=== PATIENT | female | born 1990 | race Caucasian/White ===

== ENCOUNTER 2018-12-26 06:08 | Day surgery (SDC) | payer BC ==
[~2018-12-26] VITALS: Ht 167.6 cm; Wt 61.2 kg
[2018-12-26] VITALS (12 sets, daily range): BP systolic 98–124; BP diastolic 47–76
[~2018-12-26 06:08] MED LIST: ceFAZolin sod 2 GM in D5W 55 ML IVP ONE
[2018-12-26] MEDS ORDERED: MINOCYCLINE HCL50 MG PO (06:52)
[2018-12-26] MEDS ORDERED: XYREM500 MG/1 M ORAL (06:52)
[2018-12-26] MEDS ORDERED: Propofol 200mg/20ml IV ONE ×2 (07:00→07:11)
[2018-12-26] MEDS ORDERED: LR 1000ml ONE ×2 (07:00→07:30)
[2018-12-26] MEDS ORDERED: Lidocaine 1% 10mg/ml/Epi 0.005mg/ml 30ml vial INJ ONE (07:10)
[2018-12-26] MEDS ORDERED: fentaNYL 100 mcg/2 mL IV ONE (07:10)
[2018-12-26] MEDS ORDERED: Dyna-Hex 2% Top Sol 2oz TOPIC ONE (07:10)
[2018-12-26] MEDS ORDERED: Midazolam 2mg/2ml Inj ONE (07:10)
[2018-12-26] MEDS ORDERED: Bupivacaine 0.25% Inj 30ml INJ ONE (07:10)
[2018-12-26] MEDS ORDERED: Muri-Lube ONE (07:10)
[2018-12-26] MEDS ORDERED: Bacitracin Oint 15gm Tube TOPIC ONE (07:10)
[2018-12-26] MEDS ORDERED: Lidocaine 1% MPF 10mg/ml 5ml ONE (07:11)
[2018-12-26] MEDS ORDERED: Sodium Chloride 10ml vial INJ ONE ×2 (07:17→08:30)
[2018-12-26] MEDS ORDERED: Succinylcholine 20mg/ml 10ml vial ONE (07:26)
[2018-12-26] MEDS ORDERED: TransDerm Scop 1mg/72HR Patch TDERMAL ONE ×2 (07:26→08:30)
[2018-12-26] MEDS ORDERED: Zemuron 50mg/5ml Inj IV ONE (07:26)
[2018-12-26] MEDS ORDERED: Sterile Water Irrig 1000ml IRRIG ONE (07:30)
--- NOTE | 2018-12-26 07:41 | Anethesia Preoperative Eval ---
Anesthesia Pre-op PMH/ROS General Date of Evaluation: Dec 26, 2018 Time of Evaluation: 07:39 Anesthesiologist: Winston ASA Score: ASA 2 Mallampati Score Class I : Soft palate, uvula, fauces, pillars visible Class II: Soft palate, uvula, fauces visible Class III: Soft palate, base of uvula visible Class IV: Only hard plate visible Mallampati Classification: Class II Surgeon: Deniz Diagnosis: Gender dysphoria Surgical Procedure: Bilateral mastectomy Anesthesia History: none Family History: no anesthesia problems Allergies: Coded Allergies: PENICILLINS (Verified Allergy, Mild, 12/26/18) SKIN RASH Medications: see eMAR Patient NPO?: Yes Past Medical History Cardiovascular: Denies: HTN, CAD, GA, valve dz, arrhythmia, other Pulmonary: Denies: asthma, COPD, MITCH, other Gastrointestinal/Genitourinary: Reports: GERD - mild Neurologic/Psychiatric: Reports: depression/anxiety; Denies: dementia, CVA, TIA, other Endocrine: Denies: DM, hypothyroidism, steroids, other HEENT: Denies: cataract (L), cataract (R), glaucoma, COWLITZ (L), COWLITZ (R), other Hematology/Immune: Denies: anemia, DVT, bleeding disorder, other Musculoskeletal/Integumentary: Denies: OA, RA, DJD, DDD, edema, other PMH Narrative: as above Anesthesia Pre-op Phys. Exam Physician Exam Last Vital Signs Date Time Temp Pulse Resp B/P (MAP) Pulse Ox O2 Delivery O2 Flow Rate FiO2 12/26/18 06:54 98.1 86 20 124/76 100 Room Air Constitutional: NAD Neurologic: CN 2-12 intact Cardiovascular: RRR, no M/R/G Respiratory: CTA Gastrointestinal: S/NT/ND Airway Exam Mallampati Score: Class II MO: full Neck: flexible ROM: full Teeth: intact Dentures: no upper, no lower Anesthesia Pre-op A/P Labs see chart Urine Test Test 12/26/18 06:20 Urine HCG, Qualitative Negative (NEGATIVE) Risk Assessment & Plan Assessment: ASA 2 Plan: GA with ETT PONV prevention Status Change Before Surgery: No Pre-Antibiotics Drug: Ancef 1gr Given Within 1 Hr of Incision: Yes Time Given: 08:10 Sam Montero MD Dec 26, 2018 07:41
[2018-12-26] MEDS ORDERED: NS Irrig 1000ml IRRIG ONE (07:44)
--- NOTE | 2018-12-26 07:47 | Pre-Procedure Note/Attestation ---
Pre-Procedure Note/Attestation Complete Prior to Procedure Planned Procedure: bilateral Procedure Narrative: mastectomy with nipple areola reconstruction Indications for Procedure Pre-Operative Diagnosis: gender identity disorder Attestation I attest that I discussed the nature of the procedure; its benefits; risks and complications; and alternatives (and the risks and benefits of such alternatives ), prior to the procedure, with the patient (or the patient's legal hospital sales representative). I attest that, if there was a reasonable possibility of needing a blood transfusion, the patient (or the patient's legal hospital sales representative) was given the [facility] standardized written summary, pursuant to the Wyatt Broussard Blood Safety Act ([place] Health and Safety Code # 1645, as amended). I attest that I re-evaluated the patient just prior to the surgery and that there has been no change in the patient's H&P, except as documented below: Zev Guaman MD Dec 26, 2018 07:47
[2018-12-26] MEDS ORDERED: Morphine Sulfate 10mg/ml Inj ONE (08:29)
[2018-12-26] MEDS ORDERED: Ketorolac 30mg Inj ONE (08:30)
[2018-12-26] MEDS ORDERED: Neostigmine 1mg/ml 10ml Inj ONE (08:30)
[2018-12-26] MEDS ORDERED: Acetaminophen (Non formulary) 100 ML IV ONE (08:30)
[2018-12-26] MEDS ORDERED: Glycopyrrolate 0.2mg/ml 1ml Vial ONE (08:30)
[2018-12-26] MEDS ORDERED: LR 1000ml 1,000 ML IVLG SCH (10:25)
[2018-12-26] MEDS ORDERED: Midazolam 2mg/2ml Inj IVP PRN (10:30)
[2018-12-26] MEDS ORDERED: DiphenhydrAMINE 50mg/ml Inj IVP PRN (10:30)
[2018-12-26] MEDS ORDERED: Meperidine 50mg/ml Inj(FOR RIGORS ONLY) IV PRN (10:30)
[2018-12-26] MEDS ORDERED: Hydromorphone 0.5mg/0.5ml inj IVP PRN (10:30)
[2018-12-26] MEDS ORDERED: Ketorolac 30mg Inj IV PRN (10:30)
[2018-12-26] MEDS ORDERED: Metoclopramide 10mg/2ml Inj IVP PRN (10:30)
--- NOTE | 2018-12-26 11:25 | Operative Note - PDOC ---
Operative Note Operative Note Date of Operation/Procedure: Dec 26, 2018 Pre-op Diagnosis: gender identity disorder Procedure: bilateral mastectomy with nipple areola reconstruction Post-op Diagnosis: same as pre-op Surgeon: Deniz Anesthesiologist: Winston Anesthesia: general Specimen: yes - 1) right breast, 2) left breast Complications: none Condition: stable Estimated Blood Loss: minimal Drains: JAMI - x2 Implant(s) used?: No Zev Guaman MD Dec 26, 2018 11:25
--- NOTE | 2018-12-26 11:26 | Discharge Instructions ---
Discharge Instructions Discharge Instructions Follow up with: Dr. Guaman 12/31/18 Diet: regular Resume Normal Activity?: Yes Activity: ambulate For Surgical Patients Dressing Care: keep dry and clean May shower: No - sponge bathe only For Congestive Heart Failure Reminder Report to your physician any weight gain of 5 pounds or more in one week. Zev Guaman MD Dec 26, 2018 11:26
--- NOTE | 2018-12-26 11:47 | Immediate Post-Op Evaluation ---
Immediate Post-Op Evalulation Immediate Post-Op Evalulation Procedure: Bilateral mastectomy with nipple reconstruction Date of Evaluation: Dec 26, 2018 Time of Evaluation: 11:46 IV Fluids: 1600 Blood Products: none Estimated Blood Loss: 50 Urinary Output: 200 Blood Pressure Systolic: 96 Blood Pressure Diastolic: 52 Pulse Rate: 98 Respiratory Rate: 20 O2 Sat by Pulse Oximetry: 99 Temperature (Fahrenheit): 98.6 Pain Score (1-10): 1 Nausea: No Vomiting: No Complications none Patient Status: reacts, patent, extubated, none Hydration Status: adequate Sam Montero MD Dec 26, 2018 11:47
--- NOTE | 2018-12-26 12:28 | 48 Hour Post Anesthesia Eval ---
Post Anesthesia Evaluation Procedure: Bilateral mastectomy with nipple reconstruction Date of Evaluation: Dec 26, 2018 Time of Evaluation: 12:27 Blood Pressure Systolic: 108 0: 58 Pulse Rate: 86 Respiratory Rate: 20 Temperature (Fahrenheit): 97.8 O2 Sat by Pulse Oximetry: 98 Airway: patent Nausea: No Vomiting: No Pain Intensity: 2 Hydration Status: adequate Cardiopulmonary Status: stable Mental Status/LOC: patient returned to baseline Follow-up Care/Observations: n/a Post-Anesthesia Complications: none Follow-up care needed: ready to discharge Sam Montero MD Dec 26, 2018 12:28
[2018-12-26] MEDS ORDERED: HYDROmorphone 1mg/ml Carpuject SUBQ PRN (16:01)
[2018-12-26] MEDS ORDERED: HYDROcodone/Acetamin 5/325 tab ORAL PRN (16:01)
[2018-12-26] MEDS ORDERED: Tylenol #3 tab (300mg/30mg) ORAL PRN (16:01)
[2018-12-26] MEDS ORDERED: D5 1/2NS 1,000 ML IV SCH (16:01)
--- NOTE | 2018-12-26 16:15 | Operative Note - Dictated ---
DATE OF OPERATION: 12/26/2018 PREOPERATIVE DIAGNOSIS: Gender identity disorder. POSTOPERATIVE DIAGNOSIS: Gender identity disorder. PROCEDURE: 1. Bilateral mastectomy. 2. Bilateral nipple-areolar reconstruction utilizing full-thickness grafts (each graft 2.5 x 2.5 cm). SURGEON: Zev Guaman M.D. ANESTHESIA: General. ESTIMATED BLOOD LOSS: 20 mL. SPECIMENS: 1. Right breast. 2. Left breast. DRAINS: A 15-Syrian Danial x2. COMPLICATIONS: None. CONDITION TO RECOVERY ROOM: Stable. INDICATION FOR PROCEDURE: This is a very pleasant 28-year-old trans male, who desires Top surgery mastectomy as part of his transition. He has the appropriate letter of recommendation from his therapist and meets all WPATH criteria for Top surgery. I have discussed the risks, benefits, and alternatives to the procedure with him including, but not limited to, bleeding, infection, scarring, nerve injury, asymmetry, contour deformity, hematoma, seroma, loss of nipple sensation, loss of nipple graft, and need for additional surgery including revisions. I discussed the orientation of the incisions and the unpredictable nature of scarring. No guarantees were made regarding the outcome. All of his questions have been answered to the best of my ability. He verbalized understanding with everything that we discussed and wishes to proceed. DESCRIPTION OF PROCEDURE: The patient was identified in the preoperative holding area and marked in the standing position. He was then brought to the operating room where he was placed in the supine position on the operating room table with his arms extended on arm boards. All bony prominences were adequately padded. Sequential compression devices were placed and intravenous antibiotics were administered. After induction of anesthesia, the patient's chest was prepped and draped in sterile fashion. I started the procedure by starting on the left breast first. The nipple-areolar complex was placed on manual stretch and a [place] measuring 2.5 cm was drawn out centered around the nipple. Next, the subdermal plane within these markings was infiltrated with 3 mL of 1% lidocaine with epinephrine. I then used a #15 blade scalpel to incise the areolar marking and proceeded to harvest a full-thickness nipple areolar composite graft. The graft was subsequently defatted, wrapped in wet gauze, and placed on the back table. I then made the inframammary fold incision using a #10 blade scalpel and dissected down to the level of the pectoralis major fascia. I then made the superior breast incision with a #10 blade scalpel and dissected down to the level of Roberth's fascia. Skin Rakes were used to retract the skin and a plane of dissection was created in a superior direction heading towards the level of the clavicle between the subcutaneous tissues in the breast parenchyma. The breast tissue was then elevated off of the pectoralis major fascia proceeding from a medial to lateral direction. The specimen was passed off the table. Hemostasis was achieved and the wound was irrigated with saline. A 15-Syrian Danial drain was then placed within the wound and brought out through a separate stab incision and secured using 2-0 silk suture. Skin shanda were then used to temporarily reapproximate the skin. I then shifted my attention to the contralateral side of the chest where the identical procedure was performed. The patient was then sat up on the operating room table and it appeared that he had very reasonable symmetry between the two sides of his chest. I then used a marking pen to draw out the proposed location of the nipple-areolar complex on each side of the chest. These markings were confirmed with direct measurement. The patient was then placed back in the supine position. On each side of the chest, the skin shanda were removed and closure of the wounds was performed using interrupted 0 Vicryl suture for the Roberth's fascia layer followed by interrupted 3-0 PDS suture for the deep dermal layer and then a running 3-0 Monocryl subcuticular suture for the skin. Next, I then proceeded with the nipple-areolar reconstruction portion of the procedure. Starting on the left breast first, the roscoe-areolar marking was incised using a #15 blade scalpel. The intervening skin within this marking was then de-epithelialized. I then brought out the full-thickness nipple areolar graft from the left chest and inset it into the de-epithelialized area using a running 5-0 fast-absorbing suture. Several 2-0 silk suture ties were then placed around the periphery of the full-thickness nipple areolar graft. The skin graft bolster was then fashioned and secured into place directly over the nipple-areolar complex and secured using the 2-0 silk suture ties. I then shifted my attention to the contralateral side of the chest where the identical procedure was performed. Next, 10 mL of 0.25% plain Marcaine was injected into the each of the chest incisions for a total of 20 mL. Steri-Strips and sterile dressings were then applied. The patient tolerated the procedure well and was sent to the recovery room in stable condition. All instrument, sharp, and sponge counts were correct at the conclusion of the case. Zev Guaman M.D. DR: FABIOLA JOB#: [id number] CC:
== END 2018-12-26 14:15 | disposition home or self-care (01) ==
LOC: SUR 06:08 → EDSEX 06:08 → SUR 14:15
DX: F64.9 Gender identity disorder, unspecified (principal); K21.9 Gastro-esophageal reflux disease without esophagitis; F32.9 Major depressive disorder, single episode, unspecified; F41.9 Anxiety disorder, unspecified; Z88.0 Allergy status to penicillin
CPT/HCPCS: 19303; 19350; 81025; J0330; J0690; J1885; J2250; J2270; J2405; J2704; J2710; J3010; J3490; 94003; 94150